=== PATIENT | male | born 1940 | race Caucasian/White ===

== ENCOUNTER 2023-12-22 12:03 | Outpatient (REF) | payer MEDICARE, SELFPAY ==
[2023-12-22 14:11] LABS: MANUAL DIFF FLAG NO
[2023-12-22 14:30] LABS: Appearance Urine Clear; Color Urine Dark Yellow; Glucose Urine UA Negative (Negative); Leukocyte Esterase Urine Negative (Negative); Nitrite Urine Negative (Negative); PH 5.5 (5.0-9.0); Urine Blood Negative (Negative); Urine Ketones Trace mg/dL (Negative); Urine Protein Trace mg/dL (Neg-Trace)
[2023-12-22 14:33] LABS: Basophils Absolute Auto 0.3 X10*3/uL (0.0-0.2); Basophils Percent Auto 1.9 % (0-2); Eosinophils Percent Auto 5.7 % (0-4); Hematocrit 48.1 % (42.0-52.0); Hemoglobin 15.4 g/dl (14.0-18.0); Imm Gran Pct Auto 1.1 % (0.0-0.4); Lymphocytes Absolute Auto 2.1 X10*3/uL (1.2-4.9); Lymphocytes Percent Auto 11.8 % (20-40); Mean Corpuscular Hemoglobin 29.6 pg (27.0-33.0); Mean Corpuscular Volume 92.3 fL (80.0-98.0); Mean Platelet Volume 11.5 fL (9.4-12.4); Monocytes Absolute Auto 0.6 X10*3/uL (0.1-1.2); Monocytes Percent Auto 3.3 % (2-11); NRBC Pct Auto 0.9 /100WBC (0.0-0.2); Neutrophils Absolute Auto 13.3 x10*3/uL (2.0-8.3); Neutrophils Percent Auto 76.2 % (45-73); Platelet Count 469 X10*3/uL (160-400); Red Blood Count 5.21 X10*6/uL (4.60-5.80); Red Cell Distribution Width 18.8 % (11.0-16.0); White Blood Count 17.5 X10*3/uL (4.8-10.8)
[2023-12-22 14:53] LABS: Alanine Aminotransferase 28 U/L (0-40); Albumin Level 4.2 g/dL (3.5-5.0); Alkaline Phosphatase 90 U/L (39-117); Anion Gap 13 (12-20); Aspartate Amino Transferase 51 U/L (5-37); Bilirubin Total 1.6 mg/dL (0.0-1.0); Blood Urea Nitrogen 26 mg/dL (9-16); Calcium 9.6 mg/dL (8.4-10.2); Carbon Dioxide 27 mmol/L (22-29); Chloride 105 mmol/L (96-108); Cholesterol 136 mg/dL (<200); Estimated Glomerular Filt Rate > 60; Glucose Random 93 mg/dL (60-115); HDL Cholesterol 35 mg/dL (>40); LDL Cholesterol Calculated 85 mg/dL (<100); Potassium 4.3 mmol/L (3.3-5.1); Sodium 141 mmol/L (135-145); Total Protein 7.8 g/dL (6.5-8.0); Triglycerides 81 mg/dL (<150)
[2023-12-22 15:00] LABS: Prostate Specific Antigen Scr 0.33 ng/mL (<0.05-4.0)
[2023-12-22 15:02] LABS: TSH reflex Free T4 3.46 uIU/mL (0.32-4.0)
== END 2023-12-22 12:04 | disposition home or self-care (01) ==
LOC: HO.CHCLDS 12:03
PROVIDERS: Visit Provider Pediatrics
DX: Z12.5 Encounter for screening for malignant neoplasm of prostate (principal); I10 Essential (primary) hypertension; N40.0 Benign prostatic hyperplasia without lower urinary tract symptoms
CPT/HCPCS: 36415; 80053; 80061; 81003; 84153; 84443; 85025

== ENCOUNTER 2024-06-20 11:23 | Outpatient (REF) | payer SELFPAY ==
[2024-06-20 14:19] LABS: Basophils Absolute Auto 0.5 X10*3/uL (0.0-0.2); Basophils Percent Auto 2.1 % (0-2); Eosinophils Absolute Auto 0.4 X10*3/uL (0.0-0.4); Eosinophils Percent Auto 1.8 % (0-4); Hematocrit 46.1 % (42.0-52.0); Hemoglobin 15.1 g/dl (14.0-18.0); Imm Gran Abs Auto 0.75 X10*3/uL (0.00-0.03); Imm Gran Pct Auto 3.2 % (0.0-0.4); Lymphocytes Absolute Auto 1.4 X10*3/uL (1.2-4.9); Lymphocytes Percent Auto 5.9 % (20-40); MANUAL DIFF FLAG SCAN; Mean Corpuscular HGB Conc 32.8 g/dl (31.0-36.0); Mean Corpuscular Hemoglobin 29.5 pg (27.0-33.0); Mean Corpuscular Volume 90.2 fL (80.0-98.0); Mean Platelet Volume 11.2 fL (9.4-12.4); Monocytes Absolute Auto 0.5 X10*3/uL (0.1-1.2); Monocytes Percent Auto 2.2 % (2-11); NRBC Pct Auto 0.6 /100WBC (0.0-0.2); Neutrophils Percent Auto 84.8 % (45-73); Platelet Count 564 X10*3/uL (160-400); Red Blood Count 5.11 X10*6/uL (4.60-5.80); SCAN SMEAR FLAG 1; White Blood Count 23.6 X10*3/uL (4.8-10.8)
[2024-06-20 14:43] LABS: SLIDE REVIEW VERIFIED
[2024-06-20 14:48] LABS: Alanine Aminotransferase 30 U/L (0-40); Albumin Level 3.6 g/dL (3.5-5.0); Alkaline Phosphatase 151 U/L (39-117); Anion Gap 11 (12-20); Aspartate Amino Transferase 65 U/L (5-37); Bilirubin Direct 0.8 mg/dL (0.0-0.5); Bilirubin Total 1.7 mg/dL (0.0-1.0); Blood Urea Nitrogen 18 mg/dL (9-16); Calcium 9.1 mg/dL (8.4-10.2); Carbon Dioxide 27 mmol/L (22-29); Chloride 108 mmol/L (96-108); Estimated Glomerular Filt Rate > 60; Glucose Random 107 mg/dL (60-115); Sodium 142 mmol/L (135-145); Total Protein 6.8 g/dL (6.5-8.0)
[2024-06-20 15:06] LABS: Folate 12.7 ng/mL (> or = 4.0); Vitamin B12 1736 pg/mL (200-900)
== END 2024-06-20 11:24 | disposition home or self-care (01) ==
LOC: HO.CHCLDS 11:23
PROVIDERS: Visit Provider Pediatrics
DX: D72.829 Elevated white blood cell count, unspecified (principal); R00.0 Tachycardia, unspecified
CPT/HCPCS: 36415; 80048; 80076; 82607; 82746; 84443; 85025

== ENCOUNTER → 2024-07-17 14:36 | Outpatient (BNV) | payer MEDICARE, SELFPAY | PROVIDERS: Visit Provider Internal Medicine | DX: D72.829 Elevated white blood cell count, unspecified (principal) | CPT/HCPCS: 99204; G2211 ==

== ENCOUNTER 2024-07-18 10:28 | Outpatient (REF) | payer MEDICARE, SELFPAY | END 2024-07-18 10:29 | disposition home or self-care (01) | LOC: HO.LAB 10:28 | PROVIDERS: PCP Pediatrics; Visit Provider Internal Medicine | DX: D72.829 Elevated white blood cell count, unspecified (principal) | CPT/HCPCS: 36415; 88184; 88185 ==

== ENCOUNTER 2024-11-22 15:35 | Outpatient (REF) | payer MEDICARE, SELFPAY ==
--- OUTSIDE RECORDS SUMMARY | 2024-11-22 16:01 | XMS_ITS | Encounter Summary ---
Author Organization [employer] Address [address] [facility] [address] [place] [address] Care Team Providers Care Director Cost Name Role Phone Raisa Wong MD Primary Care Provider [phone] Encounter Details Date Type Department Care Team (Late st Contact Info) Description 07/25/2024 Orders Only [facility] MED & PEDS [address] [place] [address] ProviderValentin MD Social History Tobacco Use Types Packs/Day Years Used Date Smoking Tobacco: Never Smokeless Tobacco: Never Housing Stability Answer Date Recorded What is your housing situation today? I have caryl sing 12/21/[address] you li ve. Do you have problems with any of the following? None of the above 12/21/2023 Food Insecurity Answer Date Recorded Within the past 12 months, y ou worried that your food would run out before you got money to buy more: Never True 12/21/2023 Within the past 12 months,th e food you bought just didn't last and you didn't have enough money to get more: Never True Transportation Answer Date Recorded In the past 12 months, has l ack of transportation kept you from medical appts, meetings, work or from getting things needed for daily living? No 12/21/2023 Utilities Answer Date Recorded In the past 12 months, has t he electric, gas, oil or water company threatened to shut off services in your home? No 12/21/2023 Sex and Gender Information Value Date Recorded Sex Assigned at Male 05/30/2022 10:38 AM EDT Legal Sex Male 10:38 AM EDT Gender Identity Male 05/30/2022 10:38 AM EDT Sexual Orientation Straight 05/30/2022 10 :38 AM EDT documented as of this encounter Plan of Treatment Not on file documented as of this encounter Procedures Procedure Name Priority Date/Time Associated Diagnosis Comments ECG 12-LEAD Routine 07/23/2024 2:08 PM EST documented in this encounter Results * ECG 12 lead (07/23/2024 2:08 PM EST) us Historical Provider ECG ORDERABLES Final Res ult documented in this encounter Visit Diagnoses Not on filedocumented in this encounter Care Teams Director Cost Relationship Specialty Start Date End Date Raisa Wong MD [address] [place] [address] PCP - General Internal Medicine 12/06/23 [facility] 05/31/24 08/25/24 [facility] 08/03/24 09/18/24 [facility] 09/13/24 documented as of this encounter
--- OUTSIDE RECORDS SUMMARY | 2024-11-22 16:01 | XMS_ITS | Encounter Summary ---
Author Organization [employer] Address [address] [place] [address] Care Team Providers Care Advertising Account Manager Name Role Phone Raisa Wong MD Primary Care Provider [phone] Reason for Visit * Reason Comments Med Refill Encounter Details Date Type Department Care Team ([facility] st Contact Info) Description 09/25/2023 Refill [facility] CH[facility] MED & PEDS [address] [place] [address] Raisa Wong MD [address] [place] [address] Social History Tobacco Use Types Packs/Day Years Used Date Smoking Tobacco: Never Assessed Sex and Gender Information Value Date Recorded Sex Assigned at Male 05/30/2022 10:38 AM EDT Legal Sex Male 10:38 AM EDT Gender Identity Male 05/30/2022 10:38 AM EDT Sexual Orientation Straight 05/30/2022 10 :38 AM EDT documented as of this encounter Plan of Treatment Not on file documented as of this encounter Visit Diagnoses Not on filedocumented in this encounter Care Teams Advertising Account Manager Relationship Specialty Start Date End Date Raisa Wong MD [address] [place] [address] PCP - General Internal Medicine 12/06/23 [facility] 05/31/24 08/25/24 [facility] 08/03/24 09/18/24 [facility] 09/13/24 documented as of this encounter
--- OUTSIDE RECORDS SUMMARY | 2024-11-22 16:01 | XMS_ITS | Encounter Summary ---
Author Organization [employer] Address [address] [facility] [address] 7[address] [place] [address] Care Team Providers Care Lang Interpreter Name Role Phone Raisa Wong MD Primary Care Provider Encounter Details Date Type Department Care Team (Late st Contact Info) Description 09/05/2024 Orders Only [facility] CH[facility] MED & PEDS [address] [place], [place] [id number] ProviderValentin MD Social History Tobacco Use Types [...] Procedure Name Priority Date/Time Associated Diagnosis Comments CT MAXILLOFACIAL WO CONTRAST Routine 09/04/2024 3:53 PM EST documented in this encounter Results * CT Maxillofacial w/o Contrast (09/04/2024 3:53 PM EST) Anatomical Region Laterality Modality Head, Neck Computed Tomogra phy us Historical Provider MD MIRANDA CT PROCEDURES Final R esult documented in this encounter Visit Diagnoses Not on filedocumented in this encounter Care Teams Lang Interpreter Relationship Specialty Start Date End Date Raisa Wong MD [address] [place] [address] PCP - General Internal Medicine 12/06/23 [facility] 08/03/24 09/18/24 [facility] 09/13/24 documented as of this encounter
--- OUTSIDE RECORDS SUMMARY | 2024-11-22 16:01 | XMS_ITS | Clinical Summary ---
Author Organization [employer] Address [address] [facility] 7t [place] [address] Care Team Providers Care Lard Mixer Name Role Phone Raisa Wong MD Primary Care Provider [phone] Allergies No known active allergies Medications metoprolol succinate XL (Toprol XL) 50 MG 24 hr tablet Take 1 tablet (50 mg) by mouth Once per day. Do not crush or chew. 30 tablet 11 12/22/2023 5 Active senna-docusate sodium (Senokot-S) 8.6-50 MG tablet Take 1 tablet by mouth Once per day. 30 tablet 11 12/22/2023 5 Active tamsulosin (Flomax) 0.4 MG 24 hr capsule Take 1 capsule (0.4 mg) by mouth Once per day. 30 capsule 11 12/22/2023 Active furosemide (Lasix) 20 MG tablet Take 1 tablet by mouth Once per day. 07/26/2024 Active hydroxyurea (Hydrea) 500 MG capsule Take 1 capsule by mouth every other day. 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 Hypoxemia 07/05/2024 Acute respiratory failure with hypoxia Paroxysmal atrial fibrillation 06/21/2024 History of recent fall 06/21/2024 Benign prostatic hyperplasia without lower urinary tract symptoms 12/24/2023 Primary hypertension 12/24/2023 Encounters Date Type Department Care Team Description 11/21/2024 4:00 PM EDT Office Visit [facility]S [address] [place] [address] Wyatt Ernst MD Dark urine (Primary Dx) 11/21/2024 Travel 11/21/[address] [address] Raisa Wong MD Nurse Triage 11/04/2024 Telephone [facility] [address] [place] [address] Raisa Wong MD 10/31/2024 11:30 AM EDT Office Visit [facility] [address] [place] [address] Raisa Wong MD Paroxysmal atrial fibrillation (CMS/HCC) (Primary Dx); Primary hypertension; Benign prostatic hyperplasia without lower urinary tract symptoms; Hypoxemia; 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 Travel 10/29/2024 Telephone [facility] [address] [place] [address] Raisa Wong MD Chart Prep 10/24/2024 Telephone [facility] [address] [place] [address] Raisa Wong MD Durable Medical Equipment 09/25/[address] [address] Raisa Wong MD FYI 09/23/2024 Telephone [facility] [address] [place] [address] Raisa Wong MD Durable Medical Equipment 09/20/2024 1:30 PM EST Office Visit [facility] [address] [place] [address] Aidee Bonner MD Open wound of toe, initial encounter (Primary Dx); Gastrointestinal hemorrhage associated with anorectal source; Primary hypertension; Paroxysmal atrial fibrillation (CMS/HCC); Bruise of left periocular tissue, subsequent encounter 09/20/2024 Travel 09/13/2024 Telephone [facility] [address] [place] [address] Raisa Wong MD Nurse Triage 09/05/2024 Orders Only [facility] [address] [place] [address] ProviderValentin MD 09/04/2024 2:00 PM EST Office Visit [facility] [address] [place] [address] Aidee Bonner MD Benign prostatic hyperplasia without lower urinary tract symptoms (Primary Dx); Paroxysmal atrial fibrillation (CMS/HCC); Fall, initial encounter; Facial hematoma, initial encounter; Localized edema 09/04/2024 Travel 09/04/2024 Telephone [facility] [address] [place] [address] Raisa Wong MD 09/03/2024 Telephone [facility] [address] [place] [address] Raisa Wong MD Nurse Triage from Last 3 Months Immunizations Name Administration Dates Next Due Influenza High-dose Quadriva lent Preservative Free 04/17/2022,04/18/2021 Influenza Quadrivalent Adjuvanted 07/08/2023 Influenza, High Dose Seasona l, Preservative Free 04/20/2017,06/07/2016,07/17/2015 Influenza, IIV3, injectable 04/18/2021,0 03/22/2019,08/25/2018,2016,06/07/2016,07/17/2015 Influenza, trivalent, adjuvanted 05/29/2024,03/01,08/25/2018 Zoster, Recombinant 09/13/2019,07/11/2019 Social History Tobacco Use Types Packs/Day Years Used Date Smoking Tobacco: Never Smokeless Tobacco: Never Tobacco Cessation:Counseling Given: Not Answered Depression Answer Date Recorded Patient Health Questionnaire-9 Score 2 09/20/2024 Patient Health Questionnaire-9 Score 2 09/20/2024 Last PHQ-9: Questionnaire Data Not on file 0 09/20/2024 Housing Stability Answer Date Recorded What is your housing situation today? I have caryl [place] 12/21/[address] you li [...] the past 12 months, has t he [employer], gas, oil or water company threatened to shut off services in your home? No 12/21/2023 Depression Answer Date Recorded Patient Health Questionnaire-2 Score 0 09/20/2024 Internet Access Answer Date Recorded Internet Access Q1 Yes 09/20/2024 Internet Access Q2 Not on file 09/20/2024 Sex and Gender Information Value Date Recorded Sex Assigned at Male 05/30/2022 10:38 AM EDT Legal Sex Male 10:38 AM EDT Gender Identity Male 05/30/2022 10:38 AM EDT Sexual Orientation Straight 05/30/2022 10 :38 AM EDT Last Filed Vital Signs Vital Sign Reading Time Taken Comments Blood Pressure 103/70 11/21/2024 4:16 PM EDT Pulse 80 11/21/2024 4:16 PM EDT Temperature 36.3 ??C (97.4 ??F) 11/21/2024 4:16 PM ED T Respiratory Rate 16 11/21/2024 4:16 PM EDT Oxygen Saturation 95% 09/20/2024 1:37 PM EST Inhaled Oxygen Concentration - - Weight 73.5 kg (162 lb) 11/21/2024 4:16 PM EDT Height 170.2 cm (5' 7 ) 11/21/2024 4:16 PM EDT Body Mass Index 25.37 11/21/2024 4:16 PM EDT Plan of Treatment Health Maintenance Due Date Last Done Comments DTaP/Tdap/Td Vaccines (1 - Tdap) 1961 Pneumococcal Vaccine: 50+ Years (1 of 1 - PCV) 1992 RSV Patients and Patients Aged 60 years or older (1 - 1-dose 75+ series) 2017 Tobacco Screening 06/21/2025 06/21/2024 Alcohol/Substance Use Screening 09/20/2025 09/20/2024 Depression Screening 09/20/2025 09/20/2024, 09/20/19 SDOH Screening 09/20/2025 09/20/2024 Lipid Panel 12/21/2028 12/22/2023, 12/29/2020 Zoster Vaccines Completed 09/13/2019, 07/11/2019 COVID-19 Vaccine Completed 05/29/2024, 03/2023, 06/03/2022, Additional history exists Influenza Vaccine Completed 05/29/2024, , 04/17/2022, Additional history exists HIB Vaccines Aged Out No longer eligi ble based on patient's age to complete this topic HPV Vaccines Aged Out No longer eligi ble based on patient's age to complete this topic Hepatitis A Vaccines Aged Out No long er eligible based on patient's age to complete this topic Hepatitis B Vaccines Aged Out No long er eligible based on patient's age to complete this topic IPV Vaccines Aged Out No longer eligi ble based on patient's age to complete this topic Meningococcal Vaccine Aged Out No lizeth niels eligible based on patient's age to complete this topic RSV under 20 months Aged Out No longe r eligible based on patient's age to complete this topic Rotavirus Vaccines Aged Out No longer eligible based on patient's age to complete this topic Procedures Procedure Name Priority Date/Time Associated Diagnosis Comments CT MAXILLOFACIAL WO CONTRAST Routine 09/04/2024 3:[address] HEAD WO CONTRAST STAT 09/04/2024 Fall, initial encounter Facial hematoma, initial encounter LIPID PANEL, STANDARD Routine 12/22/2023 12:10 PM EDT Primary hypertension Benign prostatic hyperplasia without lower urinary tract symptoms from Last 3 Months or Most Recently Relevant to Health Maintenance Results * CT Maxillofacial w/o Contrast (09/04/2024 3:53 PM EST) Anatomical Region Laterality Modality Head, Neck Computed Tomogra phy us Historical Provider MD MIRANDA CT PROCEDURES Final R esult * CT Head w/o Contrast (09/04/2024) Anatomical Region Laterality Modality Head, Neck Computed Tomogra phy us Aidee Bonner MD IMG CT PROCEDURES Final Res ult * (ABNORMAL) Lipid Panel, Standard (12/22/2023 12:10 PM EDT) Triglycerides 81 <150 mg/dL [facility] Comment:Desirable Triglyceri de: less than 150 mg/dLBorderline High Triglyceride 150-199 mg/dLHigh Triglyceride: 200-499 mg/dLVery High Triglyceride: greater than or equal to 5OO mg/dL Cholesterol 136 <200 mg/dL [facility] Comment:Desirable Cholestero l: less than 200 mg/dLBorderline High Cholesterol: 200-239 mg/dLHigh Cholesterol: greater than 239 mg/dL LDL Cholesterol Calculated 85 <100 mg/dL [facility] Comment:Desirable LDL: less than 100 mg/dLNear Optimal/Above Optimal LDL: 110- 129 mg/dLBorderline High LDL: 130-159 mg/dLHigh LDL: 160-189 mg/dLVery High LDL: greater than or equal to 190 mg/dL HDL Cholesterol 35(L) >40 mg/dL [facility] Comment:Desirable HDL: great er than 40 mg/dL Note: This HDL assay may give artificially low results in patients with liver disease. Blood Venous blood specimen / Unknown 12/22/2023 12:10 PM EDT 12/22/2023 2:06 PM EDT us Raisa Wong MD LAB BLOOD ORDERABLES Final Re sult [facility] [address] [place] [phone] from Last 3 Months or Most Recently Relevant to Health Maintenance Insurance [facility] MEDEX CARE MEDICARE Care Teams Lard Mixer Relationship Specialty Start Date End Date Raisa Wong MD [address] [place] [address] PCP - General Internal Medicine 12/06/23 [facility] 09/13/24
--- OUTSIDE RECORDS SUMMARY | 2024-11-22 16:01 | XMS_ITS | Encounter Summary ---
Author Organization [employer] Address [address] [place] [address] [address] [place] [address] Care Team Providers Care Optical Brightener Maker Helper Name Role Phone Raisa Wong MD Primary Care Provider [phone] Raisa Wong MD Primary Care Provider [phone] Encounter Details Date Type Department Care Team (Late st Contact Info) Description 03/21/2023 Orders Only [facility] MED & PEDS [address] [place] [address] Katheryn Polanco LPN Social History Tobacco Use Types Packs/Day Years [...] on filedocumented in this encounter Care Teams Optical Brightener Maker Helper Relationship Specialty Start Date End Date Raisa Wong MD [address] [place] [address] PCP - General Family Medicine 03/22/22 08/20/23 Raisa Wong MD [address] [place] [address] PCP - General Internal Medicine 12/06/23 [facility] 05/31/24 08/25/24 [facility] 08/03/24 09/18/24 [facility] 09/13/24 documented as of this encounter
--- OUTSIDE RECORDS SUMMARY | 2024-11-22 16:01 | XMS_ITS | Encounter Summary ---
Author Organization [employer] Address [address] [place] [address] 7 [place] [address] Care Team Providers Care Demolition Crane Operator Name Role Phone Raisa Wong MD Primary Care Provider [phone] Raisa Wong MD Primary Care Provider [phone] Reason for Visit * Reason Comments Med Refill Encounter Details Date Type Department Care Team (Late st Contact Info) Description 06/19/2023 Refill [facility] MED & PEDS [address] [place] [address] Raisa Wong MD [address] [place] [address] Social History Tobacco Use Types Packs/Day Years [...] on filedocumented in this encounter Care Teams Demolition Crane Operator Relationship Specialty Start Date End Date Raisa Wong MD [address] [place] [address] PCP - General Family Medicine 03/22/22 08/20/23 Raisa Wong MD [address] [place] [address] PCP - General Internal Medicine 12/06/23 [facility] 05/31/24 08/25/24 [facility] 08/03/24 09/18/24 [facility] 09/13/24 documented as of this encounter
--- OUTSIDE RECORDS SUMMARY | 2024-11-22 16:01 | XMS_ITS | Encounter Summary ---
Author Organization [employer] Address [address] [facility] 7 [place] [address] Care Team Providers Care Metal Polisher And Buffer Apprentice Name Role Phone Raisa Wong MD Primary Care Provider [phone] Encounter Details Date Type Department Care Team ([facility] st Contact Info) Description 01/19/2024 Orders Only [facility] MED & PEDS [address] [place], [place] [phone] Raisa Wong MD [address] [place] [address] Social History Tobacco Use Types Packs/Day Years [...] Procedure Name Priority Date/Time Associated Diagnosis Comments LEUKEMIA/LYMPHOMA EVALUATION Routine 07/18/2024 10:50 AM EST SLIDE REVIEW Routine 06/20/2024 11:25 AM EST documented in this encounter Results * Leukemia/Lymphoma Evaluation (07/18/2024 10:50 AM EST) LLE Interpretation See Note [facility] Comment:See report from Ienc[employer]ra en[employer]aldiva in the EMR. 07/18/2024 10:5 0 AM EST 07/18/2024 10:50 AM EST Narrative [facility] - 07/23/2024 9:30 AM EST ELEVATED WHITE BLOOD CELL [id number] us Generic External Data Provider LAB PATHOLOGY ORD ERABLES Final Result Performing Organization Address [facility] Co de Phone Number [facility] [address] [place] [phone] * Slide Review (06/20/2024 11:25 AM EST) Slide Review VERIFIED [facility] 06/20/2024 11:2 5 AM EST 06/20/2024 2:07 PM EST us Raisa Wong MD LAB BLOOD ORDERABLES Final Re sult Performing Organization Address [facility] Co de Phone Number [facility] [address] [place] [phone] documented in this encounter Visit Diagnoses Not on filedocumented in this encounter Care Teams Metal Polisher And Buffer Apprentice Relationship Specialty Start Date End Date Raisa Wong MD [address] [place] [address] PCP - General Internal Medicine 12/06/23 [facility] 05/31/24 08/25/24 [facility] 08/03/24 09/18/24 [facility] 09/13/24 documented as of this encounter
--- OUTSIDE RECORDS SUMMARY | 2024-11-22 16:01 | XMS_ITS | Encounter Summary ---
Author Organization [employer] Address [address] [facility] 7 [place] [address] Care Team Providers Care Data Steward Name Role Phone Raisa Wong MD Primary Care Provider [phone] Encounter Details Date Type Department Care Team (Late st Contact Info) Description 11/21/2024 4:00 PM EDT Office Visit [facility] MED & PEDS [address] [place], [place] [phone] Wyatt Ernst MD [address] [place] [address] Dark urine (Primary Dx) Social History Tobacco Use Types Packs/Day Years Used Date Smoking Tobacco: Never Smokeless Tobacco: Never Depression Answer Date Recorded Patient Health Questionnaire-9 [...] AM EDT documented as of this encounter Last Filed Vital Signs Vital Sign Reading Time Taken Comments Blood Pressure 103/70 11/21/2024 4:16 PM EDT Pulse 80 11/21/2024 4:16 PM EDT Temperature 36.3 ??C (97.4 ??F) 11/21/2024 4:16 PM ED T Respiratory Rate 16 11/21/2024 4:16 PM EDT Oxygen Saturation - - Inhaled Oxygen Concentration - - Weight 73.5 kg (162 lb) 11/21/2024 4:16 PM EDT Height 170.2 cm (5' 7 ) 11/21/2024 4:16 PM EDT Body Mass Index 25.37 11/21/2024 4:16 PM EDT documented in this encounter Progress Notes * Wyatt Onofre MD - 11/21/2024 4:00 PM EDT Subjective Patient ID: Wes Carvajal is a 84 y.o. male who presents for No chief complaint on file.. HPI Patient was seen on office due to complain of dark urine Review of Systems Constitutional: Negative for diaphoresis, fatigue and fever. Respiratory: Negative for cough and shortness of breath. Cardiovascular: Negative for chest pain. Gastrointestinal: Negative for abdominal distention, abdominal pain, blood in stool, nausea and vomiting. Genitourinary: Negative for decreased urine volume, difficulty urinating, dysuria, flank pain, frequency, hematuria and urgency. Objective Physical Exam Constitutional: Appearance: Normal appearance. Cardiovascular: Rate and Rhythm: Normal rate. Heart sounds: No murmur heard. Abdominal: General: Abdomen is flat. There is no distension. Palpations: There is no mass. Tenderness: There is no abdominal tenderness. Hernia: No hernia is present. Neurological: General: No focal deficit present. Mental Status: He is alert and oriented to person, place, and time. Psychiatric: Mood and Affect: Mood normal. Behavior: Behavior normal. Assessment/Plan Problem List Items Addressed This Visit None Visit Diagnoses Dark urine - Primary Denied fever/chills, nausea/vomiting, dysuria, frquency, no suprapubic pain, will order urine test and blood test to determine etiology, could most likely be related to dehydration, er precautions reviewed Relevant Orders CBC auto differential Comprehensive Metabolic Panel Urinalysis, Complete, with Reflex to Culture documented in this encounter Plan of Treatment Scheduled Orders Name Type Priority Associated Diagnoses Orde r Schedule CBC auto differential Lab Routine Dark urine Expected: 11/21/2024 (Approximate), Expires: 11/21/2025 Comprehensive Metabolic Panel Lab Routine Dark urine Expected: 11/21/2024 (Approximate), Expires: 11/21/2025 Urinalysis, Complete, with Reflex to Culture Lab Routine Dark urine Expected: 11/21/2024 (Approximate), Expires: 11/21/2025 documented as of this encounter Visit Diagnoses Diagnosis Dark urine- Primary Other nonspecific finding on examination of urine documented in this encounter Additional Health Concerns Assessment Noted Time PHQ-9 Depression Total Score: 2 09/20/19 25 1:47 PM EST documented as of this encounter Care Teams Data Steward Relationship Specialty Start Date End Date Raisa Wong MD [address] [place] [address] PCP - General Internal Medicine 12/06/23 [facility] 09/13/24 documented as of this encounter
--- OUTSIDE RECORDS SUMMARY | 2024-11-22 16:01 | XMS_ITS | Continuity of Care Document ---
Author Name [facility] Organization [facility] Care Team Providers Care Pharmacy Technologist Name Role Phone [facility] Unavailable Unavailable Problems Combined list of problems from Department of Defense and Veterans Affairs facilities. It does not include entries that were removed or entered in error. Problem Status Onset Date Problem Type Date of Resolution Comments Source Diagnosis: ICD-10-CM Z74.1 Need for assistance with personal care Active Diagnosis [facility] ([facility]) Encounters Combined list of: 1) Encounters from Department of Veterans Affairs facilities going backup to the last 18 months, not all [place] inpatient encounters are included; 2) Encounters from the Department of Defense facilities going backup to 280 months. Location Location Details Encounter Type Encounter Number Reason For Visit Attending Provider ADM Date DC Date Status Disposition Source [place] [facility] [place] [facility] Outpatient Encounter [id number] 11/11 [place] [facility] [place] [facility] [place] [facility] Outpatient Encounter [id number] 11/15 [place] [facility] [place] [facility] ([facility]) PH1 ASSMT&MGMT NQHP 5-10 [id number] Diagnos is: ICD-10- CM Z74.1 Need for assista nce with persona l ABDELRAHMAN Doe 11/18 [facility] ([facility])
--- OUTSIDE RECORDS SUMMARY | 2024-11-22 16:01 | XMS_ITS | Clinical Summary ---
Author Organization [facility] Address [address] [place] [address] Phone Care Team Providers Care Attending Physician Name Role Phone Raisa Wong MD Primary Care Provider [phone] Allergies No known active allergies Medications aspirin 81 mg EC tablet Take 1 tablet (81 mg total) by mouth 1 (one) time each day. Active metoprolol succinate (TOPROL-XL) 50 mg 24 hr tablet Take 1 tablet (50 mg total) by mouth daily. 12/22/2023 5 Active tamsulosin (FLOMAX) 0.4 mg 24 hr capsule Take 1 capsule (0.4 mg total) by mouth 1 (one) time each day. Active furosemide (LASIX) 20 mg tablet Take 1 tablet (20 mg total) by mouth 1 (one) time each day. 30 each 11 07/26/2024 5 Active Active Problems Problem Noted Date Diagnosed Date Leukocytosis 07/26/2024 Resolved Problems Problem Noted Date Diagnosed Date Resolved Date Acute CHF (CMS/HCC V24, CMS/HCC V28) 07/22/2024 07/26/2024 Encounters Date Type Department Care Team Description 09/04/2024 4:50 PM EST - 09/04/2024 9:10 PM EST Emergency [facility] Emergency [address] [place] [address] Garland Redd, Head injury, initial encounter (Primary Dx); Closed head injury, initial encounter; Concussion without loss of consciousness, initial encounter Discharge Disposition: Home or Self Care from Last 3 Months Medical History Medical History Date Comments A-fib ([facility] V24, [facility] V28) Stroke ([facility] V24, [facility] V28) Dementia ([facility] V24, [facility] V28) BPH (benign prostatic hyperplasia) Leukocytosis Pneumonia Social History Tobacco Use Types Packs/Day Years Used Date Smoking Tobacco: Never Smokeless Tobacco: Never Tobacco Cessation:Counseling Given: Not Answered Interpersonal Safety Answer Date Record ed Physical Abuse 07/23/2024 Verbal Abuse 07/23/2024 Sex and Gender Information Value Date Recorded Sex Assigned at Male 09/04/2024 5:10 PM EST Legal Sex Male 10:49 PM EST Gender Identity Male 09/04/2024 5:10 PM EST Sexual Orientation Straight 09/04/2024 5: 10 PM EST Obstetrics History Last Filed Vital Signs Vital Sign Reading Time Taken Comments Blood Pressure 100/63 09/04/2024 8:58 PM EST Pulse 68 09/04/2024 8:58 PM EST Temperature 36.6 ??C (97.8 ??F) 09/04/2024 8:58 PM ES T Respiratory Rate 16 09/04/2024 8:58 PM EST Oxygen Saturation 93% 09/04/2024 8:58 PM EST Inhaled Oxygen Concentration - - Weight 75.7 kg (166 lb 12.8 oz) 09/04/2024 4:44 PM EST Height 172.7 cm (5' 8 ) 09/04/2024 4:44 PM EST Body Mass Index 25.36 09/04/2024 4:44 PM EST Plan of Treatment Health Maintenance Due Date Last Done Comments DTaP,Tdap,and Td Vaccines (1 - Tdap) 1959 Pneumococcal Vaccine: 50+ Years (1 of 2 - PCV) 1961 RSV Immunization Adult Patients (1 - 1-dose 75+ series) 2017 Depression Screening 05/24/2024 Medicare Annual Wellness Visit 05/24/2024 Social Influencers of Health Screening 05/24/2024 COVID-19 Vaccine ( season) 2024 05/29/2024, 07/08/2023, 06/03/2022, Additional history exists Hypertension/CHF/CAD Annual BMP Blood Test 07/25/2025 07/25/2024, 07/23/2024, 07/22/2024, Additional history exists Falls Risk Assessment 07/26/2025 07/26/2024 Cholesterol Screening (Lipid Panel) 12/21/2028 12/22/2023 Zoster Vaccines Completed 09/13/2019, 07/11/2019 Influenza Vaccine Completed 05/29/2024, , 04/17/2022, Additional [...] on patient's age to complete this topic MMR Vaccines Aged Out No longer eligi ble based on patient's age to complete this topic Meningococcal ACWY Vaccine Aged Out N o longer eligible based on patient's age to complete this topic Meningococcal B Vaccine Aged Out No l onger eligible based on patient's age to complete this topic RSV Immunization Patients Under 20 months Aged Out No longer eligible based on patient's age to complete this topic Varicella Vaccines Aged Out No longer eligible based on patient's age to complete this topic Procedures Procedure Name Priority Date/Time Associated Diagnosis Comments CT HEAD WO CONTRAST STAT 09/04/2024 7 :[address] MAXILLOFACIAL WO CONTRAST STAT 09/04/2024 6:[address] HEAD WO CONTRAST STAT 09/04/2024 6 :13 PM EST BASIC METABOLIC PANEL Routine 07/25/2024 5:27 AM EST from Last 3 Months or Most Recently Relevant to Health Maintenance Results * CT Head wo Contrast (09/04/2024 7:15 PM EST) Only the most recent of2 resultswithin the time period is included. Anatomical Region Laterality Modality Head and Neck Computed Tomogra phy 09/04/2024 7:48 PM EST Impressions 09/04/2024 7:48 PM EST Impression: 1. No CT evidence of acute intracranial abnormality. Left frontal scalp hematoma. 2. Cerebral volume loss, intracranial atherosclerotic disease and mild sequela of chronic small vessel ischemic disease. This document has been electronically signed by: Abram Reynoso MD on 09/04/2024 19:48:00 Narrative 09/04/2024 7:48 PM EST INDICATION: Facial trauma CT of the head without intravenous contrast Comparison: CT - CT HEAD WO CONTRAST - 09/04/24 18:12 EST Findings: The ventricles and sulci are prominent, consistent with mild generalized cerebral parenchymal volume loss. The ventricles are symmetric and the basilar cisterns are intact. Mild periventricular, deep and subcortical white matter hypodensities are nonspecific but statistically reflect the sequela of chronic small vessel ischemic change.Lacunar infarct right basal ganglia. No intracranial hemorrhage, extra-axial fluid collection, midline shift or mass-effect is evident. No evidence of acute large vessel or territorial ischemia. Brainstem and cerebellum unremarkable. Vascular calcifications indicate intracranial atherosclerosis. The imaged portion of the paranasal sinuses are clear. No mastoid effusions are demonstrated. The orbital contents are unremarkable. Calvarium intact. Left frontal scalp hematoma. Procedure Note Abram Reynoso MD - 09/04/2024 INDICATION: Facial trauma CT of the head without intravenous contrast Comparison: CT - CT HEAD WO CONTRAST - 09/04/24 18:12 EST Findings: The ventricles and sulci are prominent, consistent with mild generalized cerebral parenchymal volume loss. The ventricles are symmetric and the basilar cisterns are intact. Mild periventricular, deep and subcortical white matter hypodensities are nonspecific but statistically reflect the sequela of chronic small vessel ischemic change.Lacunar infarct right basal ganglia. No intracranial hemorrhage, extra-axial fluid collection, midline shift or mass-effect is evident. No evidence of acute largevessel or territorial ischemia. Brainstem and cerebellum unremarkable. Vascular calcifications indicate intracranial atherosclerosis. The imaged portion of the paranasal sinuses are clear. No mastoid effusions are demonstrated. The orbital contents are unremarkable. Calvarium intact. Left frontal scalp hematoma. IMPRESSION: Impression: 1. No CT evidence of acute intracranial abnormality. Left frontal scalp hematoma. 2. Cerebral volume loss, intracranial atherosclerotic disease and mild sequela of chronic small vessel ischemic disease. This document has been electronically signed by: Abram Reynoso MD on 09/04/2024 19:48:00 Garland Redd DO IMG CT PROCEDURES Final Result * CT Maxillofacial wo Contrast (09/04/2024 6:13 PM EST) Anatomical Region Laterality Modality Head and Neck Computed Tomogra phy 09/04/2024 6:38 PM EST Impressions 09/04/2024 6:38 PM EST Impression: 1. No intraorbital injury or orbital fractures. 2. No fractures of the facial bones identified. This document has been electronically signed by: Abram Reynoso MD on 09/04/2024 18:38:37 Narrative 09/04/2024 6:38 PM EST INDICATION: trauma CT orbits and maxillofacial bones without contrast Comparison: None Findings: The globes are intact. No retrobulbar hematoma or post septal swelling is seen. No orbital fractures are present. Left frontal scalp hematoma. No fractures of the frontal calvarium, maría alvaro or cribriform plate. No facial fractures are identified. The zygomatic arches, pterygoid plates and hard palate are intact. The nasal bones and bridge are intact. The nasal septum is deviated to the right. Maxillary spine intact. Both temporomandibular joints are congruent. The mandible are intact. Mild maxillary sinusitis on the right. No air-fluid levels. The ostiomeatal units and the infundibulum are patent. Procedure Note Abram Reynoso MD - 09/04/2024 INDICATION: trauma CT orbits and maxillofacial bones without contrast Comparison: None Findings: The globes are intact. No retrobulbar hematoma or post septal swellingis seen. No orbital fractures are present. Left frontal scalp hematoma. No fractures of the frontal calvarium, maría alvaro or cribriform plate. No facial fractures are identified. The zygomatic arches, pterygoidplates and hard palate are intact. The nasal bones and bridge are intact. The nasal septum is deviated to the right. Maxillary spine intact. Both temporomandibular joints are congruent. The mandible are intact. Mild maxillary sinusitis on the right. No air-fluid levels. The ostiomeatal units and the infundibulum are patent. IMPRESSION: Impression: 1. No intraorbital injury or orbital fractures. 2. No fractures of the facial bones identified. This document has been electronically signed by: Abram Reynoso MD on 09/04/2024 18:38:37 Garland Redd DO IMG CT PROCEDURES Final Result * (ABNORMAL) Basic metabolic panel (07/25/2024 5:27 AM EST) Sodium 140 133 - 145 mmol/L LAB CHEMISTRY METHOD 07/25/2024 7:55 AM [facility] Potassium 4.1 3.5 - 5.5 mmol/L LAB CHEMISTRY METHOD 07/25/2024 7:55 AM [facility] Chloride 101 96 - 110 mmol/L LAB CHEMISTRY METHOD 07/25/2024 7:55 AM [facility] CO2 32 21 - 32 mmol/L LAB CHEMISTRY METHOD 07/25/2024 7:55 AM [facility] Anion Gap 7 3 - 11 LAB CHEMISTRY METHOD 07/25/2024 7:55 AM [facility] Glucose 63(L) 70 - 100 mg/dL LAB CHEMISTRY METHOD 07/25/2024 7:55 AM [facility] BUN 25 5 - 25 mg/dL LAB CHEMISTRY METHOD 07/25/2024 7:55 AM [facility] Creatinine 1.25 0.70 - 1.30 mg/dL LAB CHEMISTRY METHOD 07/25/2024 7:55 AM [facility] eGFR 57(L) >=60 mL/min/1. 73m2 LAB CHEMISTRY METHOD 07/25/2024 7:55 AM [facility] Comment:Calculation based on the??Chronic Kidney Disease Epidemiology Collaboration (CKD-EPI) equation refit??without adjustment for race. BUN/Creatinine Ratio 20.0 LAB CHEMISTRY METHOD 07/25/2024 7:55 AM EST [facility] Calcium 8.7 8.5 - 10.5 mg/dL LAB CHEMISTRY METHOD 07/25/2024 7:55 AM EST [facility] Blood Venous blood specimen / Unknown Venipuncture / Unknown 07/25/2024 5:27 AM EST 07/25/2024 7:00 AM EST Hector Rahman MD LAB BLOOD ORDERABLES nal Result [facility] [address] [place] [address], [place] [phone] from Last 3 Months or Most Recently Relevant to Health Maintenance Insurance MEDICARE [facility] Advance Directives Documents on File Type Date Recorded Patient Indirect Fire Infantryman Expl anation Advance Directives and Living Will 07/23/2024 11:48 AM Luke Carvajal Health Care Proxy * No CPR/Do Not Intubate (Latest Code Status on File) Date Activated Date Inactivated Comments 07/22/2024 5:40 PM 07/26/2024 6:08 PM This code status was ascertained in the following way: Code status discussion: per living will or healthcare instructions To update the patient's code status, place a code status order. Do not modify or discontinue any currently active code status orders. * Full Code - Default Date Activated Date Inactivated Comments 07/22/2024 4:26 PM 07/22/2024 5:40 PM This is or olya is used when code status has not been discussed with the patient, or code status is otherwise unknown/unconfirmed To update the patient's code status, place a code status order. Do not modify or discontinue any currently active code status orders. Healthcare Agents on File Name Relationship Healthcare Agent Relationshi p Communication Luke Carvajal [facility] Health Care Agent Care Teams Attending Physician Relationship Specialty Start Date End Date Raisa Wong MD [address] [place] [phone] PCP - General Internal Medicine 07/22/24
--- OUTSIDE RECORDS SUMMARY | 2024-11-22 16:01 | XMS_ITS | Encounter Summary ---
Author Organization [employer] Address [address] [facility] 7 [place] [address] Care Team Providers Care Scales Inspector Name Role Phone Raisa Wong MD Primary Care Provider [phone] Reason for Visit * Reason Onset Date Comments FYI 09/25/2024 Encounter Details Date Type Department Care Team ([facility] st Contact Info) Description 09/25/2024 Telephone [facility] [address] [place] [address] Raisa Wong MD [address] [place] [phone] FY Social History Tobacco Use Types Packs/Day Years [...] AM EDT documented as of this encounter Miscellaneous Notes * Telephone Encounter - Carina Rivera RN - 09/25/2024 2:43 PM EST TC placed to Nighat at [facility] who confirms the the pt has been experiencing lower oxygen saturation levels today. Upon light exercise the pt desaturates to around 88% on 4L of oxygen and itgoes further down to 86% when walking. Pt currently has orders to be on 2L at rest and 4L with activity. After about five minutes of rest the pt has been rebounding to around 93-94%. Pt is currently asymptomatic besides some malaise which is typical for the pt. Pt next office appt is scheduled for 10/31/2024. * Telephone Encounter - Geno Domínguez - 09/25/2024 2:14 PM EST Tc from [facility] with [facility] informing pt was on 4 liters of oxygen and desaturated to 88%oxygen saturation at light exercise. During walking the pt desaturated down to 86% oxygen saturation. Pt don't have symptoms of shortness at breath as he denies. Nighat just wanted to inform PCP. documented in this encounter Plan of Treatment Not on file documented as of this encounter Visit Diagnoses Not on filedocumented in this encounter Additional Health Concerns Assessment Noted Time PHQ-9 Depression Total Score: 2 09/20/19 25 1:47 PM EST documented as of this encounter Care Teams Scales Inspector Relationship Specialty Start Date End Date Raisa Wong MD [address] [place] [address] PCP - General Internal Medicine 12/06/23 [facility] 09/13/24 documented as of this encounter
--- OUTSIDE RECORDS SUMMARY | 2024-11-22 16:01 | XMS_ITS | Encounter Summary ---
Author Organization [employer] Address [address] [facility] [address] [place] [address] Care Team Providers Care Overnight Houseperson Name Role Phone Raisa Wong MD Primary Care Provider [phone] Encounter Details Date Type Department Care Team ([facility] st Contact Info) Description 07/15/2024 Telephone [facility] [address] [place] [address] Raisa Wong MD [address] [place] [address] Social History Tobacco Use Types Packs/Day Years [...] on filedocumented in this encounter Care Teams Overnight Houseperson Relationship Specialty Start Date End Date Raisa Wong MD [address] [place] [phone] PCP - General Internal Medicine 12/06/23 [facility] 05/31/24 08/25/24 [facility] 08/03/24 09/18/24 [facility] 09/13/24 documented as of this encounter
--- OUTSIDE RECORDS SUMMARY | 2024-11-22 16:01 | XMS_ITS | Encounter Summary ---
Author Organization [employer] Address [address] [facility] [address] [place] [address] Care Team Providers Care Dairy Farm Manager Name Role Phone Raisa Wong MD Primary Care Provider Encounter Details Date Type Department Care Team (Latest Contact Info) Description 11/21/2024 Travel Social History Tobacco Use Types Packs/Day Years [...] Time PHQ-9 Depression Total Score: 2 09/20/19 1:47 PM EST documented as of this encounter Care Teams Dairy Farm Manager Relationship Specialty Start Date End Date Raisa Wong MD [address] [place] [phone] PCP - General Internal Medicine 12/06/23 [facility] 09/13/24 documented as of this encounter
--- OUTSIDE RECORDS SUMMARY | 2024-11-22 16:01 | XMS_ITS | Continuity of Care Document ---
Author Organization [facility] Address [address] [place] [phone]- Care Team Providers Care Vocational Childcare Teacher Name Role Phone Raisa Wong MD Primary Care Physician [id number] Date(s): 10/15/24 - 11/20/24 [facility] [address] [place] [address] Attending Physician: Raji Ridley MD Admitting Physician: Raji Ridley MD Referring Physician: Raisa Wong MD Encounter Type: Pre-OutPatient One Time Allergies, Adverse Reactions, Alerts No Known Allergies Immunizations Given and Recorded Vaccine Date Status Refusal Reason influenza virus vaccine, inactivated 04/18/21 Lino rded influenza virus vaccine, inactivated 03/22/19 Ilno rded influenza virus vaccine, inactivated 08/25/18 Lino rded influenza virus vaccine, inactivated 04/20/17 Lino rded influenza virus vaccine, inactivated 06/07/16 Lino rded influenza virus vaccine, inactivated 07/17/15 Lino rded SARS-CoV-2 (COVID-19) mRNA BNT-162b2 vac 12/17/20 Recorded SARS-CoV-2 (COVID-19) mRNA BNT-162b2 vac 11/25/20 Recorded zoster vaccine, inactivated 09/13/19 Recorded zoster vaccine, inactivated 07/11/19 Recorded Medications furosemide 20 mg oral tablet 20 mg, 1, tablet, By Mouth, Daily, # 30 tablet, Refills 0, Tot. Refills 0, Maintenance, 09/12/24 11:59:00 AM EST, Route to Pharmacy Electronically, [facility]/pharmacy #[id number], Partial fill upon patient request if the prescription is for a schedule II opioid drug., 175, cm, 09/12/24 11:33:00 EST, Height, 76.4, kg, 09/07/24 23:56:00 EST, Dry Weight Start Date: 09/12/24 Status: Ordered Quantity: 30.0 Unit: tablet Repeat number: 1 Gauze Pad (4 X 4) See Instructions, # 1 units, Refills 2, Tot. Refills 2, Maintenance, Use for wound care, 03/15/12 4:37:00 PM EDT Start Date: 03/15/12 Status: Ordered Quantity: 1.0 Unit: Units Repeat number: 3 hydroxyurea 500 mg oral capsule 1 capsule = 500 mg, Every other day, 0 Refills, Maintenance, 09/07/24 11:11:00 PM EST, Partial fill upon patient request if the prescription is for a schedule II opioid drug. Start Date: 09/07/24 Status: Ordered Repeat number: 1 metoprolol 50 mg oral tablet, extended release 50 mg, 1, tablet, By Mouth, Daily, # 90 tablet, Refills 3, Tot. Refills 3, Maintenance, 09/12/24 11:59:00 AM EST, Route to Pharmacy Electronically, [facility]/pharmacy #[id number], Partial fill upon patient request if the prescription is for a schedule II opioid drug., 175, cm, 09/12/24 11:33:00 EST, Height, 76.4, kg, 09/07/24 23:56:00 EST, Dry Weight Start Date: 09/12/24 Stop Date: 09/07/25 Status: Ordered Quantity: 90.0 Unit: tablet Repeat number: 4 Solosite wound gel Solosite wound gel, See Instructions, # 1 pack/packet, Refills 0, Tot. Refills 0, Maintenance, apply pea sized amount to mid portion of wound daily, 04/12/12 4:11:51 PM EDT Start Date: 04/12/12 Status: Ordered Quantity: 1.0 Unit: pack/packet Repeat number: 1 solostie solostie, See Instructions, # 1 pack/packet, Refills 0, Tot. Refills 0, Maintenance, pea size amount to wound daily, 04/12/12 4:09:14 PM EDT Start Date: 04/12/12 Status: Ordered Quantity: 1.0 Unit: pack/packet Repeat number: 1 tamsulosin 0.4 mg oral capsule 0.4 mg, 1, capsule, By Mouth, Daily, # 30 capsule, Refills 0, Maintenance, 05/03/21 8:56:00 AM EDT, Partial fill upon patient request if the prescription is for a schedule II opioid drug. Start Date: 05/03/21 Status: Ordered Quantity: 30.0 Unit: capsule Repeat number: 1 Tape (1 -Plastic) See Instructions, # 1 units, Refills 2, Tot. Refills 2, Maintenance, Use for wound care, 03/15/12 4:40:42 PM EDT Start Date: 03/15/12 Status: Ordered Quantity: 1.0 Unit: Units Repeat number: 3 Social History Social History Type Response Smoking Status Never (less than 100 in lifetime) entered on: 05/31/21 Sex Sex Representation Male (finding) Patient Care team information Care Team Personnel Name: Judith LARA , Rasia Pastrana Position: [facility] Outreach Member Role: PCP Address: [address] [place] [address] Telecom: Name: Dalia SPAULDING, Jay Jay Gannon Position: [facility] RN Member Role: Primary Care Nurse Care Team Related Persons Name: YAEL NINO Name: TENNILLE NINO Name: SOHAIL CHINCHILLA Name: TONYA CHINCHILLA Insurance Providers Guarantor name: LARISA CHINCHILLA Health Plan Information #: 1 Payer: MEDICARE PART B OUTPT Member Number: [id number] Policy Number: NA Group Number: NA Health Plan Information #: 2 Payer: MEDEX Member Number: [id number] Policy Number: NA Group Number: NA
--- OUTSIDE RECORDS SUMMARY | 2024-11-22 16:01 | XMS_ITS | Encounter Summary ---
Author Organization [employer] Address [address] [facility] 7 [place] [address] Care Team Providers Care Research Physician Name Role Phone Raisa Wong MD Primary Care Provider [phone] Reason for Visit * Reason Onset Date Comments Call Back Request 01/11/2024 Encounter Details Date Type Department Care Team ([facility] Contact Info) Description 01/11/2024 Telephone [facility] MED [facility] PEDS [address] [place], [place] [id number] Raisa Wong MD [address] [place] [address] Call Back Request Social History Tobacco Use Types Packs/Day Years Used Date Smoking Tobacco: Never Smokeless Tobacco: Never Housing Stability Answer Date Recorded What is your housing situation today? I have carylsadie [place] 12/21/[address] you [...] encounter Miscellaneous Notes * Telephone Encounter - Wing Blayne RN - 01/19/2024 2:42 PM EDT Tc to [facility] and spoke to Monique. Relayed verbal order to change code to Z12.11 to screen for neoplasm of the colon. Monique changed the ICD and stated the test will be shipped out. * Telephone Encounter - Wing Blayne RN - 01/19/2024 12:51 PM EDT Tc to [facility] and spoke to Luke. Stated the ICD 10 codes put in for Cologuard, I10 ad N40 were contraindicated for Cologuard order. Luke stated ICD 10 codes Z12.11 or Z.12.12 would work if provider wanted to give verbal consent. Stated would message provider to inquire what she would like to do. Luke also stated they are open until 7 pm [employer]. * Telephone Encounter - Jorge Slagado - 01/15/2024 12:09 PM EDT Tc from Bernice at [facility] calling in regards to the message below case# [id number] Number [phone] * Telephone Encounter - Rupali Manuel - 01/11/2024 11:38 AM EDT Tc from [facility] [employer] requesting to speak with a nurse in regards to a colon guard notbeing shipped to [facility] due to ICD code(s). Reference #: [id number] Please contact [employer] at [phone] documented in this encounter Plan of Treatment Not on file documented as of this encounter Visit Diagnoses Not on filedocumented in this encounter Care Teams Research Physician Relationship Specialty Start Date End Date Raisa Wong MD [address] [place] [address] PCP - General Internal Medicine 12/06/23 [facility] 05/31/24 08/25/24 [facility] 08/03/24 09/18/24 [facility] 09/13/24 documented as of this encounter
--- OUTSIDE RECORDS SUMMARY | 2024-11-22 16:01 | XMS_ITS | Encounter Summary ---
Author Organization [employer] Address [address] [facility] 7 [place] [address] Care Team Providers Care Mica Machine Operator Name Role Phone Raisa Wong MD Primary Care Provider [phone] Reason for Visit * Reason Onset Date Comments Nurse Triage 11/21/2024 Encounter Details Date Type Department Care Team ([facility] st Contact Info) Description 11/21/2024 Telephone [facility] MEDICINE [address] [place] [address] Raisa Wong MD [address] [place] [id number] Nurse Triage Social History Tobacco Use Types Packs/Day Years [...] encounter Miscellaneous Notes * Telephone Encounter - Cassie Phelps RN - 11/21/2024 1:24 PM EDT called pt to triage, spoke to ex with pt. states a couple of days duration of very dark urine and weakness. denies blood, fevers, inability to urinate, back pain, or other associated symptoms. pt does not always drink enough and this could be a factor. she is concerned especially with the weakness and difficulty standing. given appt this afternoon in [facility] with another provider at 4:00 for exam. advised home care: rest, push fluids, monitor temperature, and call back if worsening or new concerns. ex understands and agrees with plan. insurance verified. Protocol Used: Urinary Symptoms (Adult) Protocol-Based Disposition: See in Office or Video Visit Today Video visit offer not recorded Positive Triage Question: * Dark urine and weakness. * All higher-acuity triage questions were negative Care Advice Discussed: * Reasons To Call Back - Fever occurs - Pain or burning with urination - Unable to urinate and bladder feels full - You become worse * Telephone Encounter - Víctor Jose R - 11/21/2024 12:12 PM EDT .Symptom: Urine Symptoms Outcome: Schedule a same-day appointment or talk to a nurse or provider today Reason: Caller denied all higher acuity questions The caller accepted this outcome. Contact pt at [phone] documented in this encounter Plan of Treatment Not on file documented as of this encounter Visit Diagnoses Not on filedocumented in this encounter Additional Health Concerns Assessment Noted Time PHQ-9 Depression Total Score: 2 09/20/19 25 1:47 PM EST documented as of this encounter Care Teams Mica Machine Operator Relationship Specialty Start Date End Date Raisa Wong MD [address] [place] [id number] PCP - General Internal Medicine 12/06/23 [facility] 09/13/24 documented as of this encounter
--- OUTSIDE RECORDS SUMMARY | 2024-11-22 16:01 | XMS_ITS | Encounter Summary ---
Author Organization [employer] Address [address] [facility] [address] [place] [address] Care Team Providers Care Hot Roll Inspector Name Role Phone Raisa Wong MD Primary Care Provider [phone] Encounter Details Date Type Department Care Team (Late st Contact Info) Description 07/23/2024 Orders Only [facility] [address] [place] [address] Provider, MD Valentin Social History Tobacco Use Types Packs/Day Years [...] Procedure Name Priority Date/Time Associated Diagnosis Comments VASC US LOWER EXTREMITY VENOUS DUPLEX BILATERAL Routine 07/22/2024 11:42 AM EST ECG 12-LEAD Routine 07/22/2024 11:36 AM EST documented in this encounter Results * VASC US Lower Extremity Venous Duplex Bilateral (07/22/2024 11:42 AM EST) us Historical Provider CV VASCULAR PROCEDURES Fi nal Result * ECG 12 lead (07/22/2024 11:36 AM EST) Historical Provider ECG ORDERABLES Final Res ult documented in this encounter Visit Diagnoses Not on filedocumented in this encounter Care Teams Hot Roll Inspector Relationship Specialty Start Date End Date Raisa Wong MD [address] [place] [id number] PCP - General Internal Medicine 12/06/23 [facility] 05/31/24 08/25/24 [facility] 08/03/24 09/18/24 [facility] 09/13/24 documented as of this encounter
--- OUTSIDE RECORDS SUMMARY | 2024-11-22 16:01 | XMS_ITS | Encounter Summary ---
Author Name [facility] [place] Organization [facility] [place] [facility] [place] Address [address] [place] [id number] Support Name Relationship Address Phone TONYA CARVAJAL Next of Kin [address] [place], [place] [phone] PALOMA CARVAJAL Emergency Contact Unknown [phone] Selected Encounter This section includes the information on record at [place] for the Encounter. Date/Time Encounter Type Encounter Description Reason Provider Source Nov 18, 2024 01:27 PM PH1 ASSMT&MGMT NQHP 5-10 TELEPHONE/ANCKHADAR CARRILLO ICD-10-CM Z74.1 Need for assistance with personal care NILAY LORA [facility] Encounter Template Text not used by [place] Assessments - Encounter Diagnoses This section includes the primary and secondary diagnoses documented for the Encounter. Date/Time Primary/Secondary Diagnosis Diagnosis Name Provider Source Nov 18, 2024 01:27 PM PRIMARY Need for assistance with personal care NILAY LORA [facility] ([id number]) Encounter Notes: All associated encounter notes This section contains the clinical notes associated to the Encounter. Date/Time Encounter Note(s) Provider Source Nov 18, 2024 01:27 PM CAREGIVER CERTIFIC ATE: LOCAL TITLE: CSP TELEPHONE NOTE STANDARD TITLE: CAREGIVER CERTIFICATE DATE OF NOTE: NOV 18, 2024@13:27 ENTRY DATE: NOV 18, 2024@13:28:21 AUTHOR: ABDELRAHMAN LORA COSIGNER: URGENCY: STATUS: COMPLETED Paloma Carvajal, spouse of who is not living with him called the Caregiver Support Line looking for help/assistance with connecting this will additional home services. reportedly has a touch of Dementia according to the caregiver and he is alone and isolated without family support. Spouse continues to go check on him occasionally and he receives meals on wheels however, caregiver shared she is old and too tired to continue this. CG spoke with CSL Line and was transferred to scheduling to help assist the in obtaining more help at home. CG is not on comm release and it appears as though is not seeing a A provider nor is he assigned one. Unit Clerk is unable to communicate with spouse regarding Veterans current status with health care/benefits. Unit Clerk provided that feedback and general information regarding VHA services at home and in the community. and the CSP overview tri-fold including the [employer] eligibility requirements to the home. /charlotte/ ABDELRAHMAN LORA GLASS ENGRAVER,PGCSS Signed: 11/18/2024 13:33 ABDELRAHMAN LORA [facility] ([id number])
--- OUTSIDE RECORDS SUMMARY | 2024-11-22 16:01 | XMS_ITS | Encounter Summary ---
Author Organization [employer] Address [address] [place] [address] [address] [place] [address] Care Team Providers Care Rapid Outsole Stitcher Name Role Phone Raisa Wong MD Primary Care Provider [phone] Reason for Visit * Reason Onset Date Comments Error 12/15/2023 Encounter Details Date Type Department Care Team ([facility] st Contact Info) Description 12/15/2023 Telephone [facility] MEDICINE [address] [place] [address] Raisa Wong MD [address] [place] [address] Error Social History Tobacco Use Types Packs/Day Years [...] on filedocumented in this encounter Care Teams Rapid Outsole Stitcher Relationship Specialty Start Date End Date Raisa Wong MD [address] [place] [address] PCP - General Internal Medicine 12/06/23 [facility] 05/31/24 08/25/24 [facility] 08/03/24 09/18/24 [facility] 09/13/24 documented as of this encounter
[2024-11-22 17:42] LABS: Appearance Urine Clear; Color Urine Dark Yellow; Glucose Urine UA Negative (Negative); Leukocyte Esterase Urine Trace (Negative); Nitrite Urine Negative (Negative); PH 5.5 (5.0-9.0); UMIC TRIGGER UACC YES; Urine Blood Negative (Negative); Urine Ketones Trace mg/dL (Negative); Urine Protein 30 (1+) mg/dL (Neg-Trace)
[2024-11-22 17:55] LABS: Bacteria Urine None Seen (None Seen); Calcium Oxalate Crystals Urine Present; Hyaline Casts Urine 0-2 /LPF (0-2); RBC Urine 0-2 /HPF (0-2); Squamous Epithelial Cell Urine 0-2 /HPF (0-2); WBC Urine 0-5 /HPF (0-5)
== END 2024-11-22 15:36 | disposition home or self-care (01) ==
LOC: HO.CHCLNP 15:35
PROVIDERS: Visit Provider Internal Medicine
DX: R82.998 Other abnormal findings in urine (principal)
CPT/HCPCS: 81001